=== PATIENT | female | born 1970 | race Caucasian/White ===

== ENCOUNTER 2019-04-18 15:51 | Observation (INO) ==
[2019-04-18] MEDS ORDERED: clonazePAM 1 MG TABLET PO PRN (20:05)
[2019-04-18] MEDS ORDERED: Albuterol 2.5 MG/3 ML NEBULIZER IH PRN (20:06)
--- NOTE | 2019-04-18 20:38 | Internal Med History&Physical ---
Date of Encounter: 04/18/19 Time of Encounter: 20:36 Internal Medicine - H&P: HPI Chief complaint: fatigue Admitted From: Home Plans for Post Hospital Care: Home History of present illness: Shanelle Jimenez is a 48-year-old woman with asthma, anemia, inflammatory bowel disease and chronic kidney disease who was on dialysis for 2 years about 8 years ago stating that she suffered kidney injury from Asacol. She says her follow-up with healthcare services has been poor but recently went to see a primary care physician yesterday who did blood work and found her hemoglobin to be low at 7.0. She was then referred to [facility] where a repeat blood test showed a hemoglobin of 6.4 and is transferred here for further care. She denies overt signs of bleeding but does acknowledge feeling more fatigued and short of breath than usual which she attributed to her asthma. She denies abdominal pain, chest pain, fever, chills, bloody and dark stool. Vitals: Reviewed General: Well-developed white woman lying in bed in no acute distress. Skin: Pale, warm and dry. HEENT: Moist mucous membranes. + conjunctivae pallor. Neck: No lymphadenopathy. No JVD. No carotid bruits. No palpable thyroid. Chest: Normal thoracic expansion. Normal breath sounds. Clear to auscultation. Heart: Normal S1 & S2; rhythmic. No rubs or murmurs. Abdomen: Non-distended, soft and non-tender to palpation. No peritoneal reacti on. Extremities: No clubbing, cyanosis or edema. No calf tenderness. Normal distal pulses. Old AV access on left arm. Neurological: Awake, alert and oriented to person, place and time. No focal defi cits. Psych: Affect appropriate. Assessment/Plan 1. Anemia: Secondary to chronic blood loss likely from GI bleed which may be compounded by the underlying kidney disease. She does report having received blood transfusions in the past as well as iron infusions. Will obtain type/screen and transfuse 1U pRBC now. Send iron studies beforehand and will need to go home on oral therapy. 2. GI bleed: Will consult GI for evaluation. Start PPI BID. 3. Asthma: Mild persistent. Place on albuterol as needed and continue daily LABA/ICS. 4. Mood disorder: On quetiapine and clonazepam. 5. Chronic kidney disease: CrCl is stable. Past Med Surg Social Fam HX - Past Medical History Medical history: asthma, dialysis, hypertension, renal disease, other Additional medical history: INSOMNIA, Psychiatric history: anxiety, depression, panic disorder - Past Surgical History Surgical History: other Additional surgical history: DIALYSIS FISTULA LEFT ARM - Social History Smoking Status: Never smoker Smokeless Tobacco Status: No Alcohol use: none Drug use: none - Family History Mother Living Status: Father Living Status: Hx Family Cardiac Disorders: Yes Internal Medicine - H&P: Meds Quetiapine Fumarate [Seroquel] 50 mg PO HS 10/21/15 [History] Zolpidem [Ambien] 10 mg PO HS 10/21/15 [History] clonazePAM [Klonopin] 1 mg PO DAILY PRN 10/21/15 [History] Albuterol Sulfate [Proventil Inhaler] 2 puff IH Q4HR PRN 12/10/15 [History] BuPROPion SR (12 HR) [Wellbutrin SR] 100 mg PO DAILY 04/18/19 [History] Budesonide/Formoterol 160/4.5 [Symbicort 160/4.5] 2 puff IH BIDR 04/18/19 [History] Omeprazole [PriLOSEC] 20 mg PO BID 04/18/19 [History] Allergy/AdvReac Type Severity Reaction Status Date / Time No Known Allergies Allergy Verified 04/18/19 13:25 All Systems PM: A 10-system review of systems was performed and is negative for pertinent findings except as documented above in the HPI. - Constitutional Vitals: Temp Pulse Resp BP Pulse Ox 98.1 F 101 16 172/98 100 04/18/19 20:17 04/18/19 20:17 04/18/19 20:17 04/18/19 20:17 04/18/19 20:17 Exam: . - Time Spent With Patient Total time spent is greater than 50% in coordination of care (as documented) at patient's floor/unit and/or counseling patient: Greater than 35 minutes
[2019-04-18 21:42] LABS: % Iron Saturation 4 % (15-50); Iron 19 mcg/dL (50-170); Transferrin 373 mg/dL (203-362)
[2019-04-18] MEDS: Pantoprazole 40 MG VIAL IVP SCH (21:59)
[2019-04-18 22:04] LABS: Ferritin < 8 ng/mL (10-120)
[2019-04-18] MEDS: Budesonide/Formoterol 160/4.5 1 PUFF INH IH SCH (22:34)
[2019-04-18] MEDS ORDERED: Ringers Solution, Lactated 1,000 ML IVC SCH (23:00)
[2019-04-19] MEDS ORDERED: 0.9 % Sodium Chloride 250 ML ONE (00:55)
--- NOTE | 2019-04-19 01:45 | Event Note ---
Date of Encounter: 04/19/19 Time of Encounter: 01:43 There has been a delay in getting her blood transfused due to detection of antibodies. Will be started now.
[2019-04-19] MEDS: Pantoprazole 40 MG VIAL IVP SCH ×2 (06:56→16:09)
[2019-04-19 07:35] LABS: Basophils % 0.4 %; Eosinophils # 0.3 K/mcL (0.0-0.6); Eosinophils % 4.8 %; Hematocrit 25.2 % (35.3-44.9); Hemoglobin 7.4 g/dL (11.5-15.4); Immature Granulocytes % 0.7 % (0-4); Lymphocytes # 1.4 K/mcL (0.6-4.6); Mean Corpuscular HGB Conc 29.4 g/dL (31.6-35.5); Mean Corpuscular Hemoglobin 25.5 pg (28.0-33.3); Mean Corpuscular Volume 86.9 fL (83.0-100.0); Mean Platelet Volume 9.8 fL (9.4-12.4); Monocytes # 0.5 K/mcL (0.0-1.3); Monocytes % 6.7 %; Neutrophils # 4.5 K/mcL (1.6-8.9); Platelet Count 298 K/mcL (140-400); Red Cell Distribution Width 17.3 % (11.5-14.5); Segmented Neutrophils % 66.4 %; White Blood Count 6.9 K/mcL (4.3-11.1)
[2019-04-19] MEDS: BuPROPion SR (12 HR) 100 MG TABLET PO SCH (08:08)
[2019-04-19] MEDS: Budesonide/Formoterol 160/4.5 1 PUFF INH IH SCH ×2 (08:24→21:36)
[2019-04-19] MEDS ORDERED: Iron Sucrose Complex 400 MG in 0.9 % Sodium Chloride 250 ML IVPB ONE ×2 (09:36→09:38)
--- NOTE | 2019-04-19 13:00 | Internal Med Progress Note ---
Hospitalist Progress Note - Encounter Date of Encounter: 04/19/19 Time of Encounter: 12:57 - Subjective Interval History: Patient admitted overnight for symptomatic anemia and found to have hemoglobin 6.4. Normocytic. Patient does not want a GI workup. She has had multiple colonoscopies in the past that have been normal. - Exam Vitals: Temp Pulse Resp BP Pulse Ox 98.5 F 92 18 176/113 100 04/19/19 12:10 04/19/19 12:10 04/19/19 12:10 04/19/19 12:10 04/19/19 12:10 Exam: General: Ill-appearing and in no acute distress HEENT: No erythema of posterior pharynx. No exudates. Lymphatics: No mandibular or cervical lymphadenopathy Cardiovascular: RRR. No murmurs. No chest wall tenderness. Lungs: Clear to auscelltation bilaterally. Regular chest rise. Abdomen: Non-tender. No rebound or gaurding. Nl bowel sounds. Extremities: No edema. 2+ pulses radial and pedal pulses Skin: No rahses, abrasions, or contusions. Nl cap refill. Psych: Nl attention. A&Ox3 Neuro: cafeteria table attendant II-XII intact. 5/5 strength. Sensation to light touch and pinprick intact. - Assessment and Plan (1) Symptomatic anemia Current Visit: Yes Status: Acute Assessment and Plan: Patient with history of stage IV chronic kidney disease previously on dialysis, probable chronic blood loss anemia with negative colonoscopies in the past, and ?ucerative colitis presents with anemia hemoglobin 6.4 in the setting of recent fatigue. -Anemia likely multifactorial: Likely component of iron deficiency anemia given ferritin less than 8 Likely component of anemia of chronic kidney disease given MCV is inappropriately normal to be clear iron deficiency anemia -Patient had colonoscopies in the past but does not want further GI workup at this time. Discussed risks and benefits with patient and still declined further workup PLAN: - S/p 1U pRBCs - Venofer 400mg qd for 3 days (if willing to stay this long) - Will inquire to pharmacy if EPO can be ordered without nephrology consult (2) Anemia due to chronic blood loss Current Visit: Yes Status: Acute Assessment and Plan: See above (3) Anemia in chronic kidney disease Current Visit: Yes Status: Acute Assessment and Plan: The above (4) CKD (chronic kidney disease), stage IV Current Visit: Yes Status: Acute Assessment and Plan: Patient says this is secondary to Asacol use in the past for UC. Currently at her baseline with GFR around 30. - We will avoid nephrotoxins (5) Metabolic acidosis Current Visit: No Status: Acute Assessment and Plan: Non-anion gap metabolic acidosis in setting of chronic kidney disease. - Would benefit from long-term bicarbonate supplementation (6) Essential hypertension Current Visit: Yes Status: Acute Assessment and Plan: Has intermittently been on lisinopril in the past. Blood pressure is elevated this admission. - Losartan 25 mg daily (7) Colitis Current Visit: No Status: Acute Assessment and Plan: History of ulcerative colitis but apparently has been in remission for years. - Monitor DVT Prophylaxis: Hold giving concern for bleeding. SCDs. - Time Spent with Patient Total time spent is greater than 50% in coordination of care (as documented) at patient's floor/unit and/or counseling patient: Greater than 35 minutes Internal Medicine: Result - Labs CBC & Chem 7: 04/19/19 07:08 Labs: Short CBC 04/19/19 Range/Units 07:08 WBC 6.9 (4.3-11.1) K/mcL Hgb 7.4 L (11.5-15.4) g/dL Hct 25.2 L (35.3-44.9) % Plt Count 298 (140-400) K/mcL Neutrophils # 4.5 (1.6-8.9) K/mcL Consult Discharge Plan - Plan Referrals: NONE,PCP [Primary Care Provider] -
[2019-04-19 13:09] LABS: Albumin 3.3 g/dL (3.5-5.7); Albumin/Globulin Ratio 0.9 (1.1-2.2); Bilirubin,Total 0.4 mg/dL (0.3-1.0); Calcium 8.8 mg/dL (8.6-10.3); Globulin 3.8 g/dL (2.4-3.5); Potassium 4.4 mEq/L (3.5-5.1); Total Protein 7.1 g/dL (6.4-8.9)
[2019-04-19] MEDS ORDERED: Acetaminophen 325 MG TABLET PO PRN (19:06)
[2019-04-20] MEDS: Pantoprazole 40 MG VIAL IVP SCH (05:20)
[2019-04-20 05:39] LABS: Hematocrit 23.7 % (35.3-44.9); Hemoglobin 7.1 g/dL (11.5-15.4); Mean Corpuscular Hemoglobin 25.5 pg (28.0-33.3); Mean Corpuscular Volume 85.3 fL (83.0-100.0); Mean Platelet Volume 9.3 fL (9.4-12.4); Platelet Count 279 K/mcL (140-400); Red Blood Count 2.78 M/mcL (3.82-4.97); Red Cell Distribution Width 17.5 % (11.5-14.5); White Blood Count 6.9 K/mcL (4.3-11.1)
[2019-04-20 05:58] LABS: Calcium 8.3 mg/dL (8.6-10.3); Potassium 4.4 mEq/L (3.5-5.1)
[2019-04-20] MEDS: Budesonide/Formoterol 160/4.5 1 PUFF INH IH SCH (07:40)
[2019-04-20] MEDS ORDERED: Iron Sucrose Complex 200 MG in 0.9 % Sodium Chloride 100 ML IVPB SCH (09:00)
[2019-04-20] MEDS: BuPROPion SR (12 HR) 100 MG TABLET PO SCH (10:07)
--- NOTE | 2019-04-20 10:10 | Discharge Summary ---
Orders not resulted at time of discharge: Pending orders 04/18/19 20:39 MMA (VIT B12 STATUS) Stat Red Blood Cells [BBK] Stat Type and Screen [BBK] Stat Date of Encounter: 04/20/19 Time of Encounter: 10:05 - Discharge Diagnosis (1) Symptomatic anemia Priority: Primary Status: Acute (2) Anemia due to chronic blood loss Priority: Secondary Status: Acute (3) Anemia in chronic kidney disease Priority: Secondary Status: Acute Qualifiers: Chronic kidney disease stage: stage 4 (severe) Qualified Code(s): N18.4 - Chronic kidney disease, stage 4 (severe); D63.1 - Anemia in chronic kidney disease (4) CKD (chronic kidney disease), stage IV Priority: Secondary Status: Acute (5) Metabolic acidosis Priority: Secondary Status: Chronic (6) Essential hypertension Priority: Secondary Status: Acute (7) Colitis Priority: Secondary Status: Chronic Hospital course: Ms. Jimenez is a 48 year old female with history of stage IV chronic kidney disease previously on dialysis, probable chronic blood loss anemia with negative colonoscopies in the past, and ?ucerative colitis presents with anemia hemoglobin 6.4 in the setting of recent fatigue. Anemia likely multifactorial: Likely component of iron deficiency anemia given ferritin less than 8 and component of anemia of chronic kidney disease given MCV is inappropriately normal to be pure iron deficiency anemia. Given 2 units pRBCs, 2 doses of IV iron, and EPO during hospital stay. Recommended further GI workup but patient DID NOT want to undergo this because she has had many colonoscopies in the past for this without evidence of bleeding (although has never had an EGD). Discussed risks and benefits with patient and still declined further workup. She will discharge with the following changes: -Oral Iron -Started on Losartan for HTN and renal protection (shown to decrease rate of renal decline). PCP needs to recheck BMP at follow-up appointment to monitor Cr (stable during hospital stay) -Started on sodium bicarb tablets (shown to decrease rate of renal decline). 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) Discharge discussed with: patient - Time Spent with Patient Total time spent providing and/or coordinating discharge services: Time spent: Greater than 30 minutes - Discharge Medications Prescriptions: New Losartan [Cozaar] 50 mg PO DAILY #30 tablet Sodium Bicarbonate 325 mg PO BID #60 tablet Iron Polysaccharide Complex [Ferrex 150] 150 mg PO DAILY 30 Days #30 capsule Continued Budesonide/Formoterol 160/4.5 [Symbicort 160/4.5] 2 puff IH BIDR Zolpidem [Ambien] 10 mg PO HS Quetiapine Fumarate [Seroquel] 50 mg PO HS clonazePAM [Klonopin] 1 mg PO DAILY PRN PRN Reason: Anxiety Albuterol Sulfate [Proventil Inhaler] 2 puff IH Q4HR PRN PRN Reason: Shortness Of Breath BuPROPion SR (12 HR) [Wellbutrin SR] 100 mg PO DAILY Omeprazole [PriLOSEC] 20 mg PO BID Home Medications: Quetiapine Fumarate [Seroquel] 50 mg PO HS 10/21/15 [History] Zolpidem [Ambien] 10 mg PO HS 10/21/15 [History] clonazePAM [Klonopin] 1 mg PO DAILY PRN 10/21/15 [History] Albuterol Sulfate [Proventil Inhaler] 2 puff IH Q4HR PRN 12/10/15 [History] BuPROPion SR (12 HR) [Wellbutrin SR] 100 mg PO DAILY 04/18/19 [History] Budesonide/Formoterol 160/4.5 [Symbicort 160/4.5] 2 puff IH BIDR 04/18/19 [History] Omeprazole [PriLOSEC] 20 mg PO BID 04/18/19 [History] Iron Polysaccharide Complex [Ferrex 150] 150 mg PO DAILY 30 Days #30 capsule 04/20/19 [Rx] Losartan [Cozaar] 50 mg PO DAILY #30 tablet 04/20/19 [Rx] Sodium Bicarbonate 325 mg PO BID #60 tablet 04/20/19 [Rx] Allergies/Adverse Reactions: Allergy/AdvReac Type Severity Reaction Status Date / Time No Known Allergies Allergy Verified 04/18/19 13:25 Date of admission: 04/18/19 18:56 Primary care physician: PCP NONE Consults: 04/18/19 20:10 Consult to Gastroenterology [CONS] Routine Consulting Provider: Gastroenterology Cely Reason for Consult: 48 year old woman presenting with progressive fatigue found to have (+) FOBT and Hgb 6.4 Call Completed: No - Constitutional Vitals: Temp Pulse Resp BP Pulse Ox 98.0 F 85 14 157/98 99 04/20/19 06:58 04/20/19 06:58 04/20/19 07:40 04/20/19 06:58 04/20/19 07:40 Exam: General: Ill-appearing and in no acute distress HEENT: No erythema of posterior pharynx. No exudates. Lymphatics: No mandibular or cervical lymphadenopathy Cardiovascular: RRR. No murmurs. No chest wall tenderness. Lungs: Clear to auscelltation bilaterally. Regular chest rise. Abdomen: Non-tender. No rebound or gaurding. Nl bowel sounds. Extremities: No edema. 2+ pulses radial and pedal pulses Skin: No rahses, abrasions, or contusions. Nl cap refill. Psych: Nl attention. A&Ox3 Neuro: manufacturing finance manager II-XII intact. 5/5 strength. Sensation to light touch and pinprick intact. - Patient Status Disposition: Home, Self-Care Condition: Good Functional capacity at discharge: independent ambulation Overall status at discharge: patient is back to baseline - Discharge Instructions Follow Up With: NONE,PCP [Primary Care Provider] - - Diet and Activity Activity: increase activity as tolerated Diet: regular diet
[2019-04-20] MEDS ORDERED: 0.9 % Sodium Chloride 250 ML ONE (11:09)
[2019-04-20 11:22] VITALS: BP 157/103
[2019-04-21] MEDS ORDERED: Iron Polysaccharide Complex 150 MG CAPSULE PO SCH (09:00)
== END 2019-04-20 17:52 | disposition home or self-care (01) ==
LOC: 2ANU → SUATTDRO 18:56
PROVIDERS: ADMIT Student in an Organized Health Care Education/Training Program; ATTEND Internal Medicine

== ENCOUNTER 2022-01-25 17:49 | Inpatient (IN) ==
[2022-01-26] MEDS ORDERED: Acetaminophen 325 MG TABLET PO PRN (00:22)
[2022-01-26] MEDS ORDERED: Naloxone 0.4 MG/ML INJ IVP PRN (00:22)
[2022-01-26] MEDS ORDERED: Melatonin 3 MG TABLET PO PRN (00:22)
[2022-01-26] MEDS ORDERED: Ondansetron 4 MG/2 ML VIAL IVP PRN (00:22)
[2022-01-26] MEDS ORDERED: 0.9 % Sodium Chloride 1,000 ML IVC SCH (03:00)
[2022-01-26] MEDS ORDERED: clonazePAM 1 MG TABLET PO PRN (03:04)
[2022-01-26] MEDS: QUEtiapine Fumarate 100 MG TABLET PO SCH ×2 (03:15→20:32)
[2022-01-26 03:18] LABS: Basophils % 0.5 %; Eosinophils # 0.3 K/mcL (0.0-0.6); Eosinophils % 3.8 %; Hematocrit 26.2 % (35.3-44.9); Hemoglobin 8.4 g/dL (11.5-15.4); Immature Granulocytes % 0.7 % (0-4); Lymphocytes # 1.4 K/mcL (0.6-4.6); Lymphocytes % 18.3 %; Mean Corpuscular HGB Conc 32.1 g/dL (31.6-35.5); Mean Corpuscular Hemoglobin 33.3 pg (28.0-33.3); Mean Platelet Volume 10.3 fL (9.4-12.4); Monocytes # 0.5 K/mcL (0.0-1.3); Monocytes % 5.9 %; Neutrophils # 5.4 K/mcL (1.6-8.9); Platelet Count 194 K/mcL (140-400); Red Blood Count 2.52 M/mcL (3.82-4.97); Red Cell Distribution Width 14.6 % (11.5-14.5); Segmented Neutrophils % 70.8 %; White Blood Count 7.6 K/mcL (4.3-11.1)
[2022-01-26 03:46] LABS: Albumin 3.4 g/dL (3.5-5.7); Bilirubin,Total 0.2 mg/dL (0.3-1.0); Calcium 8.4 mg/dL (8.6-10.3); Globulin 3.4 g/dL (2.4-3.5); Magnesium 1.7 mg/dL (1.6-2.6); Phosphorous 4.2 mg/dL (2.7-4.5); Potassium 5.1 mEq/L (3.5-5.1); Total Protein 6.8 g/dL (6.4-8.9)
[2022-01-26] MEDS ORDERED: *HR* Labetalol 20 MG/4 ML SYRINGE IVP ONE (04:54)
[2022-01-26 08:46] LABS: Hematocrit 26.3 % (35.3-44.9); Hemoglobin 8.4 g/dL (11.5-15.4); Mean Corpuscular HGB Conc 31.9 g/dL (31.6-35.5); Mean Corpuscular Hemoglobin 33.3 pg (28.0-33.3); Mean Corpuscular Volume 104.4 fL (83.0-100.0); Mean Platelet Volume 10.2 fL (9.4-12.4); Platelet Count 194 K/mcL (140-400); Red Blood Count 2.52 M/mcL (3.82-4.97); Red Cell Distribution Width 14.6 % (11.5-14.5)
[2022-01-26 08:59] LABS: Bacteria,Urine Few per hpf (None-Few); Bilirubin,Urine Negative (Negative); Blood,Urine Negative (Negative); Clarity,Urine Clear (Clear); Color,Urine Colorless (Yellow); Glucose,Urine (UA) 30 mg/dL (Normal); Ketones,Urine Negative (Negative); Leukocyte Esterase,Urine Large (Negative); Mucus,Urine Few per lpf (None-Few); Nitrite,Urine Negative (Negative); PH,Urine 6.5 pH Units (5.0-8.0); Protein,Urine 50 mg/dL (Neg-Trace); Squamous Epithelial Cell,Urine Few per hpf (None-Few); Urobilinogen,Urine Normal (Normal); WBC,Urine 30-50 per hpf (0-3)
[2022-01-26 09:09] LABS: Calcium 8.2 mg/dL (8.6-10.3); Potassium 4.7 mEq/L (3.5-5.1); Uric Acid 7.3 mg/dL (2.3-7.6)
[2022-01-26 09:11] LABS: % Iron Saturation 24 % (15-50); Iron 66 mcg/dL (50-170); Transferrin 197 mg/dL (203-362)
[2022-01-26 09:28] LABS: Ferritin 21 ng/mL (10-120)
[2022-01-26 09:34] LABS: Folate 4.5 ng/mL (3.0-16.0)
[2022-01-26] MEDS: Sodium Bicarbonate 150 MEQ in D5% in Water 1,000 ML IVC SCH ×2 (10:45→20:33)
[2022-01-26] MEDS ORDERED: Ergocalciferol (VIT D2) 50,000 UNIT (1.25MG) CAP PO SCH (15:00)
[2022-01-26] MEDS: calcitrioL 0.25 MCG CAPSULE PO SCH (18:04)
[2022-01-27 01:38] LABS: Basophils % 0.3 %; Eosinophils # 0.2 K/mcL (0.0-0.6); Eosinophils % 3.7 %; Hematocrit 24.5 % (35.3-44.9); Hemoglobin 8.3 g/dL (11.5-15.4); Immature Granulocytes % 0.8 % (0-4); Lymphocytes # 1.6 K/mcL (0.6-4.6); Lymphocytes % 25.5 %; Mean Corpuscular HGB Conc 33.9 g/dL (31.6-35.5); Mean Corpuscular Volume 100.4 fL (83.0-100.0); Monocytes # 0.3 K/mcL (0.0-1.3); Monocytes % 5.1 %; Platelet Count 189 K/mcL (140-400); Red Blood Count 2.44 M/mcL (3.82-4.97); Red Cell Distribution Width 14.3 % (11.5-14.5); Segmented Neutrophils % 64.6 %; White Blood Count 6.2 K/mcL (4.3-11.1)
[2022-01-27 01:58] LABS: Calcium 7.9 mg/dL (8.6-10.3); Potassium 4.4 mEq/L (3.5-5.1)
[2022-01-27] MEDS: amLODIPine 5 MG TABLET PO SCH (09:27)
[2022-01-27] MEDS: Cyanocobalamin (B-12) 1,000 MCG TABLET PO SCH (09:27)
[2022-01-27] MEDS: Sodium Bicarbonate 150 MEQ in D5% in Water 1,000 ML IVC SCH ×3 (09:27→17:31)
[2022-01-27] MEDS: calcitrioL 0.25 MCG CAPSULE PO SCH (09:27)
[2022-01-27] MEDS ORDERED: clonazePAM 1 MG TABLET PO PRN (12:49)
[2022-01-27] MEDS: Venlafaxine XR (24 HR) 75 MG CAP.ER.24H PO SCH (13:14)
[2022-01-27 14:48] LABS: Protein/Creatinine Ratio,Urine 1.41 mg/mg (0.00-0.20)
[2022-01-27] MEDS: Budesonide/Formoterol 160/4.5 1 PUFF INH IH SCH (20:57)
[2022-01-27] MEDS: QUEtiapine Fumarate 100 MG TABLET PO SCH (21:12)
[2022-01-28] MEDS: Sodium Bicarbonate 150 MEQ in D5% in Water 1,000 ML IVC SCH (03:20)
[2022-01-28 06:05] LABS: Basophils % 0.5 %; Eosinophils # 0.2 K/mcL (0.0-0.6); Eosinophils % 3.7 %; Hematocrit 26.5 % (35.3-44.9); Hemoglobin 8.8 g/dL (11.5-15.4); Immature Granulocytes % 0.8 % (0-4); Lymphocytes # 1.5 K/mcL (0.6-4.6); Lymphocytes % 23.9 %; Mean Corpuscular HGB Conc 33.2 g/dL (31.6-35.5); Mean Corpuscular Volume 99.3 fL (83.0-100.0); Mean Platelet Volume 10.2 fL (9.4-12.4); Monocytes # 0.4 K/mcL (0.0-1.3); Monocytes % 6.4 %; Neutrophils # 4.1 K/mcL (1.6-8.9); Platelet Count 204 K/mcL (140-400); Red Blood Count 2.67 M/mcL (3.82-4.97); Red Cell Distribution Width 14.2 % (11.5-14.5); Segmented Neutrophils % 64.7 %; White Blood Count 6.3 K/mcL (4.3-11.1)
[2022-01-28 06:23] LABS: Potassium 4.2 mEq/L (3.5-5.1)
[2022-01-28] MEDS: Venlafaxine XR (24 HR) 75 MG CAP.ER.24H PO SCH (07:34)
[2022-01-28] MEDS: Cyanocobalamin (B-12) 1,000 MCG TABLET PO SCH (07:34)
[2022-01-28] MEDS: calcitrioL 0.25 MCG CAPSULE PO SCH (07:34)
[2022-01-28] MEDS: amLODIPine 5 MG TABLET PO SCH (07:34)
[2022-01-28 09:46] VITALS: BP 136/85; PULSE 98; TEMP 99.9; O2SAT 95
[2022-01-28] MEDS: Budesonide/Formoterol 160/4.5 1 PUFF INH IH SCH (09:48)
== END 2022-01-28 10:50 | disposition home or self-care (01) | DRG 683 ==
LOC: 2ANU → SUATTDRO 21:58
PROVIDERS: ADMIT Internal Medicine; ATTEND Internal Medicine